=== PATIENT | male | born 1930 | race Caucasian/White ===

== ENCOUNTER 2021-11-11 15:00 | Inpatient (IN) | payer OTHER, MEDICARE ==
[~2021-11-11] VITALS: Ht 185.4 cm; Wt 109.9 kg
[2021-11-11 16:32] LABS: HEMOGLOBIN 11.1 gm/dl (14.0-17.5); RED BLOOD COUNT 3.47 M/UL (4.20-5.50); WHITE BLOOD COUNT 11.3 K/UL (4.5-11.0)
[2021-11-12 04:26] LABS: RED BLOOD COUNT 3.43 M/UL (4.20-5.50); WHITE BLOOD COUNT 12.1 K/UL (4.5-11.0)
[2021-11-12] MEDS ORDERED: SYNTHROID50 MCG PO (11:37)
[2021-11-12] MEDS ORDERED: AMIODARONE HCL200 MG PO (11:37)
[2021-11-12] MEDS ORDERED: FERROUS SULFAT325 M2 PO (11:38)
[2021-11-12] MEDS ORDERED: TOPROL XL 25 MG25 MG PO (11:38)
[2021-11-12] MEDS ORDERED: LIPITOR20 MG PO (11:39)
[2021-11-12] MEDS ORDERED: FLOMAX 0.4 MG0.4 MG PO (11:39)
[2021-11-12] MEDS ORDERED: SINGULAIR10 MG PO (11:39)
[2021-11-12] MEDS ORDERED: ALDACTONE25 MG PO (11:39)
[2021-11-12] MEDS ORDERED: MULTIVITAMIN1 EACH PO (11:40)
[2021-11-12] MEDS ORDERED: MILK OF MAGNESI30 ML PO (11:40)
[2021-11-12] MEDS ORDERED: ASPIRIN EC81 MG PO (11:40)
[2021-11-12] MEDS ORDERED: VITAMIN D325 MCG PO (11:41)
[2021-11-12] MEDS ORDERED: VITAMIN E400 UNI4 PO (11:42)
[2021-11-12] MEDS ORDERED: VITAMIN C500 M4 PO (11:42)
[2021-11-12] MEDS ORDERED: VITAMIN B-121000 MCG PO (11:43)
[2021-11-13 05:47] LABS: HEMOGLOBIN 10.1 gm/dl (14.0-17.5); RED BLOOD COUNT 3.15 M/UL (4.20-5.50); WHITE BLOOD COUNT 9.4 K/UL (4.5-11.0)
[2021-11-14 06:03] LABS: RED BLOOD COUNT 3.42 M/UL (4.20-5.50); WHITE BLOOD COUNT 10.2 K/UL (4.5-11.0)
[2021-11-15 02:44] LABS: HEMOGLOBIN 10.9 gm/dl (14.0-17.5); RED BLOOD COUNT 3.39 M/UL (4.20-5.50); WHITE BLOOD COUNT 12.3 K/UL (4.5-11.0)
[2021-11-15] MEDS ORDERED: LASIX 40 MG TAB40 MG PO (12:59)
[2021-11-15] MEDS ORDERED: COMBIVENT RESPIM4 GM INH (13:08)
== END 2021-11-15 16:14 | disposition home or self-care (01) | DRG 292 ==
LOC: ER1 15:00 → M/S 20:28 → CDU 20:28 → M/S 22:45
PROVIDERS: Emergency Medicine; Physician Assistant Medical; ADMIT Internal Medicine
PROC: B24BZZZ Ultrasonography of Heart with Aorta (ICD-10-PCS; principal; 2021-11-13)
DX: I50.33 Acute on chronic diastolic (congestive) heart failure (principal); N17.9 Acute kidney failure, unspecified; I31.3 Pericardial effusion (noninflammatory); M48.56XA Collapsed vertebra, not elsewhere classified, lumbar region, initial encounter for fracture; Z20.822 Contact with and (suspected) exposure to COVID-19; I87.2 Venous insufficiency (chronic) (peripheral); M51.36 Other intervertebral disc degeneration, lumbar region; E86.1 Hypovolemia; N40.0 Benign prostatic hyperplasia without lower urinary tract symptoms; R91.1 Solitary pulmonary nodule; D50.9 Iron deficiency anemia, unspecified; K82.8 Other specified diseases of gallbladder; I48.0 Paroxysmal atrial fibrillation; Z96.0 Presence of urogenital implants; Z83.2 Family history of diseases of the blood and blood-forming organs and certain disorders involving the immune mechanism; N18.9 Chronic kidney disease, unspecified; H91.90 Unspecified hearing loss, unspecified ear; I25.10 Atherosclerotic heart disease of native coronary artery without angina pectoris; E03.9 Hypothyroidism, unspecified; Z95.5 Presence of coronary angioplasty implant and graft; Z87.442 Personal history of urinary calculi; Z87.891 Personal history of nicotine dependence; Z88.8 Allergy status to other drugs, medicaments and biological substances; Z91.14 Patient's other noncompliance with medication regimen; Z79.01 Long term (current) use of anticoagulants
CPT/HCPCS: ECHO; 36415; 71045; 80048; 80053; 81001; 82550; 82553; 83735; 83880; 84439; 84443; 84484; 85025; 85027; 87040; 87086; 93005; 93306; 94640; 94664; 94760; 96374; 96375; 97116-GP-CQ; 97161; 99285; J0692; J1650; J1940; J2270; Q9967; U0002